=== PATIENT | male | born 1955 | race Caucasian/White ===

== ENCOUNTER 2021-03-08 09:49 | Inpatient (IN) ==
[2021-03-08] MEDS ORDERED: CeFAZolin Syr 2,000MG/20 ML 2,000 MG/20 ML SYRINGE IVPB ONE (10:01)
[2021-03-08] MEDS ORDERED: Ringers Solution, Lactated 1,000 ML IVC SCH (10:15)
[2021-03-08] MEDS ORDERED: Ondansetron 4 MG/2 ML VIAL IVP PRN (11:01)
[2021-03-08] MEDS ORDERED: *HR* OxyCODONE Immed Rel 5 MG TABLET PO PRN ×2 (11:01→17:04)
[2021-03-08] MEDS ORDERED: *HR* HYDROmorphone PF 0.5 MG/0.5 ML SYRINGE IVP PRN (11:01)
[2021-03-08] MEDS ORDERED: *HR* Midazolam HCl 2 MG/2 ML VIAL ONE (11:02)
[2021-03-08] MEDS ORDERED: *HR* Propofol 200 MG/20 ML VIAL IVP ONE (11:02)
[2021-03-08] MEDS ORDERED: *HR* FentaNYL (PF) 100 MCG/2 ML VIAL ONE ×3 (11:02→15:26)
[2021-03-08] MEDS ORDERED: *HR* Rocuronium Bromide 50 MG/5 ML VIAL ONE (11:03)
[2021-03-08] MEDS ORDERED: Lidocaine -MPF 2% 2 ML VIAL ONE ×2 (11:03→14:53)
[2021-03-08] MEDS ORDERED: EPHEDrine 50 MG/ML VIAL ONE (11:05)
[2021-03-08] MEDS ORDERED: *HR* Vasopressin 20 UNIT/ML VIAL ONE (11:18)
[2021-03-08] MEDS ORDERED: ceFAZolin 1,000 MG, Sodium Chloride IRRigation 1,000 ML IR ONE (11:20)
[2021-03-08] MEDS ORDERED: Heparin 1,000 UNITS/500 mL 500 ML ONE ×2 (12:30→16:10)
[2021-03-08] MEDS ORDERED: Lacri-Lube 3.5 GM TUBE ONE (13:24)
[2021-03-08] MEDS ORDERED: *HR* Phenylephrine 10 MG/ML VIAL ONE (13:25)
[2021-03-08] MEDS ORDERED: Albumin Human 5% 25.0 GM/500 ML IV.SOLN ONE (13:30)
[2021-03-08] MEDS ORDERED: Ondansetron 4 MG/2 ML VIAL ONE (14:00)
[2021-03-08] MEDS ORDERED: *HR* Norepinephrine 4 MG/4 ML VIAL IVC ONE (14:47)
[2021-03-08] MEDS ORDERED: Sugammadex Sodium 200 MG/2 ML VIAL IV ONE (14:54)
[2021-03-08] MEDS ORDERED: *HR* Labetalol 20 MG/4 ML SYRINGE IVP PRN (17:04)
[2021-03-08] MEDS ORDERED: Naloxone 0.4 MG/ML INJ IVP PRN (17:04)
[2021-03-08] MEDS ORDERED: *HR* HYDROcodone/Acet 5/325 mg TABLET PO PRN (17:04)
[2021-03-08] MEDS ORDERED: Acetaminophen 325 MG TABLET PO PRN (17:04)
[2021-03-08] MEDS: CeFAZolin 2 GM/120 ML BAG IVPB SCH (18:45)
[2021-03-09 01:34] LABS: Basophils % 0.2 %; Hematocrit 37.6 % (37.5-50.1); Immature Granulocytes % 0.4 % (0-4); Lymphocytes # 0.8 K/mcL (0.6-4.6); Lymphocytes % 7.7 %; Mean Corpuscular HGB Conc 34.6 g/dL (31.6-35.5); Mean Corpuscular Hemoglobin 33.8 pg (28.0-33.3); Mean Corpuscular Volume 97.7 fL (83.0-100.0); Monocytes # 0.2 K/mcL (0.0-1.3); Monocytes % 2.4 %; Neutrophils # 8.9 K/mcL (1.6-8.9); Platelet Count 140 K/mcL (140-400); Red Blood Count 3.85 M/mcL (4.19-5.50); Red Cell Distribution Width 12.8 % (11.5-14.5); Segmented Neutrophils % 89.3 %
[2021-03-09 01:58] LABS: BUN/Creatinine Ratio 23 (6-26); Blood Urea Nitrogen 13 mg/dL (8-23); Calcium 8.9 mg/dL (8.6-10.3); Carbon Dioxide 21 mEq/L (23-29); Chloride 102 mEq/L (98-107); Glucose 130 mg/dL (70-105); Osmolality,Calculated 278 (280-300); Potassium 4.2 mEq/L (3.5-5.1); Sodium 133 mEq/L (136-145); eGFR For African Americans > 60 (> 60); eGFR For Non-African Americans > 60 (> 60)
[2021-03-09] MEDS: CeFAZolin 2 GM/120 ML BAG IVPB SCH ×2 (02:55→09:41)
[2021-03-09 07:32] VITALS: PULSE 59
[2021-03-09 11:25] VITALS: BP 135/83; TEMP 98.1; O2SAT 96
== END 2021-03-09 14:24 | disposition home or self-care (01) | DRG 254 ==
LOC: SAMDAY 09:49 → 2NNU 17:56
PROVIDERS: ADMIT Surgery Vascular Surgery; ATTEND Surgery Vascular Surgery

== ENCOUNTER 2021-05-10 06:47 | Inpatient (IN) ==
[2021-05-10] MEDS ORDERED: *HR* Propofol 200 MG/20 ML VIAL IVP ONE ×2 (07:03→07:04)
[2021-05-10] MEDS ORDERED: *HR* Succinylcholine 200 MG/10 ML VIAL IVP ONE (07:03)
[2021-05-10] MEDS ORDERED: Ondansetron 4 MG/2 ML VIAL ONE (07:03)
[2021-05-10] MEDS ORDERED: *HR* Rocuronium Bromide 50 MG/5 ML VIAL ONE ×3 (07:03→12:01)
[2021-05-10] MEDS ORDERED: Lidocaine -MPF 2% 5 ML VIAL ONE (07:03)
[2021-05-10] MEDS ORDERED: CeFAZolin Syr 2,000MG/20 ML 2,000 MG/20 ML SYRINGE IVPB ONE (07:07)
[2021-05-10] MEDS ORDERED: *HR* Heparin 5,000 UNIT/ML VIAL ONE ×2 (07:09→10:25)
[2021-05-10] MEDS ORDERED: Ringers Solution, Lactated 1,000 ML IVC SCH (07:15)
[2021-05-10] MEDS ORDERED: Ondansetron 4 MG/2 ML VIAL IVP PRN ×2 (07:37→14:49)
[2021-05-10] MEDS ORDERED: *HR* OxyCODONE Immed Rel 5 MG TABLET PO PRN (07:37)
[2021-05-10] MEDS ORDERED: Acetaminophen IV 1,000 MG/100 ML BAG IVPB ONE (07:37)
[2021-05-10] MEDS ORDERED: Albuterol 2.5 MG/3 ML NEBULIZER IH PRN (07:37)
[2021-05-10] MEDS ORDERED: *HR* HYDROmorphone PF 0.5 MG/0.5 ML SYRINGE IVP PRN (07:37)
[2021-05-10] MEDS ORDERED: Heparin 1,000 UNITS/500 mL 500 ML ONE (07:39)
[2021-05-10] MEDS ORDERED: *HR* FentaNYL (PF) 100 MCG/2 ML VIAL ONE ×2 (07:39→09:38)
[2021-05-10] MEDS ORDERED: Protamine Sulfate 50 MG/5 ML VIAL IVP ONE ×2 (07:41→11:44)
[2021-05-10] MEDS ORDERED: Heparin 1,000 UNITS/500 mL 1,000 ML ONE (07:41)
[2021-05-10] MEDS ORDERED: *HR* Phenylephrine 10 MG/ML VIAL ONE (07:48)
[2021-05-10] MEDS ORDERED: *HR* Vasopressin 20 UNIT/ML VIAL ONE (08:08)
[2021-05-10] MEDS ORDERED: ceFAZolin 1,000 MG, Sodium Chloride IRRigation 1,000 ML IR ONE (08:15)
[2021-05-10] MEDS ORDERED: Sugammadex Sodium 200 MG/2 ML VIAL IV ONE (10:59)
[2021-05-10] MEDS ORDERED: Albumin Human 5% 12.5 GM/250 ML IV.SOLN ONE ×2 (11:45→13:17)
[2021-05-10] MEDS ORDERED: *HR* HYDROMORPHONE 2 MG/ML VIAL ONE (12:42)
[2021-05-10] MEDS ORDERED: Albumin Human 5% 12.5 GM/250 ML IV.SOLN IVPB ONE (13:31)
[2021-05-10] MEDS ORDERED: *HR* HYDROcodone/Acet 5/325 mg TABLET PO PRN (14:49)
[2021-05-10] MEDS ORDERED: Naloxone 0.4 MG/ML INJ IVP PRN (14:49)
[2021-05-10] MEDS: *HR* HYDROcodone/Acet 5/325 mg TABLET PO PRN (15:39)
[2021-05-10] MEDS: CeFAZolin 2 GM/120 ML BAG IVPB SCH (19:23)
[2021-05-10] MEDS: Pregabalin 75 MG CAPSULE PO SCH (20:31)
[2021-05-10] MEDS: lisinopriL 20 MG TABLET PO SCH (20:31)
[2021-05-10] MEDS: cilostazoL 100 MG TABLET PO SCH (20:31)
[2021-05-11 00:42] LABS: Basophils % 0.3 %; Hemoglobin 11.2 g/dL (12.9-16.9); Immature Granulocytes % 0.4 % (0-4); Lymphocytes # 1.2 K/mcL (0.6-4.6); Lymphocytes % 10.2 %; Mean Corpuscular Hemoglobin 33.9 pg (28.0-33.3); Mean Platelet Volume 11.1 fL (9.4-12.4); Monocytes # 0.7 K/mcL (0.0-1.3); Monocytes % 6.5 %; Neutrophils # 9.3 K/mcL (1.6-8.9); Platelet Count 147 K/mcL (140-400); Red Cell Distribution Width 13.3 % (11.5-14.5); Segmented Neutrophils % 82.6 %; White Blood Count 11.2 K/mcL (4.3-11.1)
[2021-05-11 00:53] LABS: BUN/Creatinine Ratio 17 (6-26); Blood Urea Nitrogen 12 mg/dL (8-23); Calcium 8.3 mg/dL (8.6-10.3); Carbon Dioxide 22 mEq/L (23-29); Chloride 103 mEq/L (98-107); Glucose 122 mg/dL (70-105); Osmolality,Calculated 275 (280-300); Potassium 4.1 mEq/L (3.5-5.1); Sodium 132 mEq/L (136-145); eGFR For African Americans > 60 (> 60); eGFR For Non-African Americans > 60 (> 60)
[2021-05-11] MEDS: CeFAZolin 2 GM/120 ML BAG IVPB SCH ×2 (02:32→10:19)
[2021-05-11] MEDS: *HR* HYDROcodone/Acet 5/325 mg TABLET PO PRN ×2 (02:37→12:18)
[2021-05-11 06:53] VITALS: TEMP 97.4
[2021-05-11] MEDS: cilostazoL 100 MG TABLET PO SCH (08:28)
[2021-05-11] MEDS: Pregabalin 75 MG CAPSULE PO SCH (08:28)
[2021-05-11] MEDS: lisinopriL 20 MG TABLET PO SCH (08:29)
[2021-05-11] MEDS ORDERED: Multivit/Ca/Min/Fe/FA 1 TAB TABLET PO SCH (09:00)
[2021-05-11] MEDS ORDERED: amLODIPine 5 MG TABLET PO SCH (09:00)
[2021-05-11 11:38] VITALS: BP 111/76; PULSE 67; O2SAT 91
== END 2021-05-11 13:32 | disposition home or self-care (01) | DRG 253 ==
LOC: SAMDAY 06:47 → 2NNU 14:48
PROVIDERS: ADMIT Surgery Vascular Surgery; ATTEND Surgery Vascular Surgery